=== PATIENT | male | born 1970 | race Caucasian/White ===

== ENCOUNTER 2017-09-14 10:15 | Emergency (ER) | payer MEDICAID ==
[~2017-09-14] VITALS: Ht 162.6 cm; Wt 101.3 kg
[2017-09-14 10:33] VITALS: BP 133/88
--- NOTE | 2017-09-14 10:38 | NUR ---
PATIENT PRESENTS TO ED WITH C/O PAINFUL BURNING URINATION X 2 DAYS; NO DISCHARGE OR BLOODY URINE HX; DENIES RX; DENIES DENIES N/V/D; SKIN IS PINK/WARM/DRY; AAOX4 WITH EVEN AND STEADY GAIT; LUNGS CLEAR BL; HR EVEN AND REGULAR; PT DENIES ANY FEVER, CP, SOB, OR COUGH AT THIS TIME; PATIENT STATES PAIN OF 9/10 AT THIS TIME; VSS; PATIENT POSITIONED FOR COMFORT; ER MD MADE AWARE OF PT STATUS.
--- NOTE | 2017-09-14 11:13 | NUR ---
Mary lares in [facility] - 09/14/17 at 1116 by NEVAEH PROCTOR AT BEDSIDE.
--- NOTE | 2017-09-14 11:13 | NUR ---
PT EVALUATING BY SERENE MAJOR.
[2017-09-14 11:14] LABS: APPEARANCE,URINE CLEAR (CLEAR); BILIRUBIN,URINE NEGATIVE (NEGATIVE); COLOR,URINE YELLOW (YELLOW); LEUKOCYTE ESTERASE ,URINE NEGATIVE (NEGATIVE); NITRITE, URINE NEGATIVE (NEGATIVE); PH,URINE 5.5 (5.0-9.0); UGLUCOSE NEGATIVE (NEGATIVE)
--- NOTE | 2017-09-14 11:15 | NUR ---
PT TRANSFERED TO BED 2.
--- NOTE | 2017-09-14 11:16 | NUR ---
URINE SPECIMEN COLLECTED.
[2017-09-14 11:22] LABS: BLOOD, URINE TRACE (NEGATIVE); RBC,URINE 0-5 (RARE) /HPF (0-5); WBC,URINE 0-5 (RARE) /HPF (0-5)
--- NOTE | 2017-09-14 11:30 | NUR ---
Pt returned from CT and placed in bed 2.
--- NOTE | 2017-09-14 12:20 | NUR ---
Lab at bedside for blood draw.
[2017-09-14 12:34] LABS: BASOPHILS # (AUTO) 0.6 K/uL (0.00-0.22); BASOPHILS % (AUTO) 4.9 % (0.0-2.0); EOSINOPHILS # (AUTO) 0.4 K/uL (0-0.4); EOSINOPHILS % (AUTO) 3.2 % (0.0-4.0); HEMATOCRIT 47.5 % (36-52); HEMOGLOBIN 15.6 g/dL (12.0-18.0); LYMPHOCYTES # (AUTO) 1.3 K/uL (2.0-11.5); LYMPHOCYTES % (AUTO) 10.2 % (20.5-51.1); MEAN CORPUSCULAR HEMOGLOBIN 29 pg (27-31); MEAN CORPUSCULAR HGB CONC 33 g/dL (33-37); MEAN CORPUSCULAR VOLUME 88 fL (80-94); MONOCYTES # (AUTO) 0.5 K/uL (0.8-1.0); MONOCYTES % (AUTO) 3.9 % (1.7-9.3); NEUTROPHILS # (AUTO) 9.5 K/uL (1.8-7.7); NEUTROPHILS % (AUTO) 77.8 % (42.2-75.2); PLATELET COUNT (AUTO) 244 K/uL (140-450); RED CELL DISTRIBUTION WIDTH 13.3 % (11.6-13.7); WHITE BLOOD COUNT (AUTO) 12.3 K/uL (4.8-10.8)
[2017-09-14 13:00] LABS: ALBUMIN 3.8 g/dL (3.4-5.0); CARBON DIOXIDE 26.4 mmol/L (21-32); CREATININE 1.3 mg/dL (0.7-1.3); POTASSIUM 4.4 mmol/L (3.5-5.1); TOTAL BILIRUBIN 1.5 mg/dL (0.0-1.0)
--- NOTE | 2017-09-14 13:26 | NUR ---
bladder scanner performed with 481 ml. urine. tristand made aware.
--- NOTE | 2017-09-14 13:27 | NUR ---
patient ambulated to bathroom to try to void per ermd instruction
--- NOTE | 2017-09-14 13:31 | NUR ---
patient stated, he voided 2 gtts. urine. ermd made aware
--- NOTE | 2017-09-14 14:33 | NUR ---
10ml bulb deflated. F/C removed. Pt tolerated well. Pt provided with canister of water. Pt instructed to drink water and advise when he needs to void. Pt verbalized understanding.
--- NOTE | 2017-09-14 15:04 | NUR ---
Pt drank 1000ml of water. Patient unable to void at this time. Dr. Doyle at bedside. Pt is stable, VSS.
--- NOTE | 2017-09-14 15:20 | NUR ---
Pt up to use the restroom.
[2017-09-14 15:49] VITALS: BP 110/64
--- NOTE | 2017-09-14 15:49 | NUR ---
Patient discharged with v/s stable. Written and verbal after care instructions given and explained. Patient alert, oriented and verbalized understanding of instructions. Ambulatory with steady gait. All questions addressed prior to discharge. ID band removed. Patient advised to follow up with PMD. Rx of Floxmax 0.4mg given. [facility] resource provided. Patient educated on indication of medication including possible reaction and side effects. Opportunity to ask questions provided and answered.
== END 2017-09-14 15:49 | disposition home or self-care (01) ==
LOC: MED 10:15
DX: R33.9 Retention of urine, unspecified (principal); F10.99 Alcohol use, unspecified with unspecified alcohol-induced disorder
CPT/HCPCS: 36415; 51701; 80053; 81001; 83690; 84484; 85025; 99285